=== PATIENT | male | born 1935 ===

== ENCOUNTER → 2017-04-04 | Emergency (ER) | payer OTHER ==
[~2017-04-04] VITALS: Ht 177.8 cm; Wt 93.0 kg
[~2017-04-04] MED LIST: AZITHROMYCIN500 MG PO; BUDESONIDE0.25 MG/2 IH; CASODEX50 MG PO; CLARITIN10 MG PO; ECOTRIN81 MG PO; HYZAAR 50-12.51 EACH PO; LEVALBUTER1.25 MG/0. IH; MEDROL4 MG PO; PEPCID40 MG PO; SINGULAIR 10MG10 MG PO; TUSSI PRES-B L120 M1 PO; TUSSIONEX PENN115 ML PO; TUSSIONEX PENNKI5 ML PO; XOPENEX1.25 MG/0. IH; [UNRECOGNIZED DRUG - OTHER]
== END | disposition left against medical advice (07) ==
LOC: ER 00:36
DX: Z53.20 Procedure and treatment not carried out because of patient's decision for unspecified reasons (principal)